=== PATIENT | male | born 1965 | race American Indian/Alaskan Native ===

== ENCOUNTER 2017-05-20 09:40 | Emergency (ER) | payer MEDICARE, MEDICAID ==
--- NOTE | 2017-05-20 10:27 | C.PDOC ---
Addendum entered and electronically signed by Luciana Mendoza APN 05/20/17 18:22: Addendum Addendum: 05/20/17 18:21 Patient lethargic Treated with additional Narcan 0.8 mg IM Addendum entered and electronically signed by Luciana Mendoza APN 05/20/17 15:07: Addendum Addendum: 05/20/17 15:06 Patient treated with narcan 0.4 mg IM for possible OD patiernt continues to be lethargic and treated with additional narcan 0.8 mg IM On re-evaluation more alert Original Note: History Of Present Illness <Luciana Mendoza - Last Filed: 05/20/17 18:21> <Kadi Loza - Last Filed: 05/20/17 22:04> 51 y/o male, with history of HTN and glaucoma, presents to the ER for detox from heroin and ETOH. Patient states that his last use was yesterday. Patient reports that he has never been in detox. (Luciana Mendoza) History Per: Patient History/Exam Limitations: no limitations <Luciana Mendoza - Last Filed: 05/20/17 18:21> <Kadi Loza - Last Filed: 05/20/17 22:04> Time Seen by Provider: 05/20/17 10:02 Chief Complaint (Nursing): Substance Abuse Past Medical History Reviewed: Historical Data, Nursing Documentation, Vital Signs - Medical History PMH: HTN Surgical History: No Surg Hx Family History: States: No Known Family Hx - Social History Hx Alcohol Use: Yes Hx Substance Use: Yes - Immunization History Hx Influenza Vaccination: Yes <Luciana Mendoza - Last Filed: 05/20/17 18:21> Vital Signs: Last Vital Signs Temp 99 F 05/20/17 19:17 Pulse 81 05/20/17 19:17 Resp 20 05/20/17 19:17 BP 149/84 05/20/17 19:17 Pulse Ox 99 05/20/17 19:17 Review Of Systems Except As Marked, All Systems Reviewed And Found Negative. <Luciana Mendoza - Last Filed: 05/20/17 18:21> Physical Exam - Physical Exam Appears: No Acute Distress Skin: Normal Color, Warm Head: Atraumatic, Normacephalic Eye(s): bilateral: Normal Inspection Nose: Normal Oral Mucosa: Moist Neck: Supple Chest: Symmetrical Cardiovascular: Rhythm Regular Respiratory: Normal Breath Sounds, No Accessory Muscle Use, No Rales, No Rhonchi , No Wheezing Neurological/Psych: Oriented x3, Normal Speech, Normal Motor, Normal Sensation <Luciana Mendoza - Last Filed: 05/20/17 18:21> ED Course And Treatment - Laboratory Results Result Diagrams: 05/20/17 10:39 05/20/17 10:39 Lab Interpretation: Normal O2 Sat by Pulse Oximetry: 98 (RA) Pulse Ox Interpretation: Normal Progress Note: Case discussed and patient evaluated by reinforcing metal worker who request admission to detox Reassessment Condition: Unchanged - Physician Consult Information Physician Contacted: Anabel Pfeiffer Outcome Of Conversation: admit <Luciana Mendoza - Last Filed: 05/20/17 18:21> - Laboratory Results Result Diagrams: 05/20/17 10:39 05/20/17 10:39 <Kadi Loza - Last Filed: 05/20/17 22:04> Medical Decision Making <Luciana Mendoza - Last Filed: 05/20/17 18:21> <Kadi Loza - Last Filed: 05/20/17 22:04> Medical Decision Making: Plan: --Labs --UA --UDS Updates: knockdown worker evaluated the patient. (Luciana Mendoza) Disposition Discussed With : Anabel Pfeiffer Doctor Will See Patient In The: Hospital - Disposition Disposition Time: 12:20 - POA Present On Arrival: None <Luciana Mendoza - Last Filed: 05/20/17 18:21> - Disposition Disposition Time: 22:04 <Kadi Loza - Last Filed: 05/20/17 22:04> - Disposition Disposition: HOME/ ROUTINE Condition: STABLE - Clinical Impression Clinical Impression: Drug abuse, Drug dependence - PA / EDUCATION SPECIALIST / Resident Statement MD/DO has reviewed & agrees with the documentation as recorded. - Scribe Statement The provider has reviewed the documentation as recorded by the Scribe <Luciana Mendoza - Last Filed: 05/20/17 18:21> <Kadi oLza - Last Filed: 05/20/17 22:04> - Hardyibe Statement Apurva Bartholomew Provider Attestation All medical record entries made by the Scribe were at my direction and personally dictated by me. I have reviewed the chart and agree that the record accurately reflects my personal performance of the history, physical exam, medical decision making, and the department course for this patient. I have also personally directed, reviewed, and agree with the discharge instructions and disposition. (Luciana Mendoza) Decision To Admit - Pt Status Changed To: Hospital Disposition Of: Inpatient - Admit Certification Admit to Inpatient:: After my assessment, the patient will require hospitalization for at least two midnights. This is because of the severity of symptoms shown, intensity of services needed, and/or the medical risk in this patient being treated as an outpatient. - InPatient: Physician Admission Certification: I certify that this patient requires 2 or more midnights of care for the following reason:: Opioid Dependence - . Bed Request Type: Detox Admitting Physician: Anabel Pfeiffer <Luciana Mendoza - Last Filed: 05/20/17 18:21> <Kadi Loza - Last Filed: 05/20/17 22:04> - . Patient Diagnosis: Drug abuse, Drug dependence Addendum <Luciana Mendoza - Last Filed: 05/20/17 18:21> <Kadi Loza - Last Filed: 05/20/17 22:04> Addendum: 05/20/17 22:02 Case discussed with Juanita from Crisis. Dr Pfeiffer is unwilling to accept patient on the floor due to the amount of Narcan required to keep the patient awake. He has been in the bathroom for the past several minutes and now c/o sweating and diarrhea. Vital signs remain stable and he does not show any signs of withdrawal at this time. he is now stating that he wants to leave. (Kadi Loza)
[2017-05-20 10:50] LABS: BASO # 0.1 K/uL (0.0-0.2); BASO % 0.8 % (0.0-2.0); EOS # 0.2 K/uL (0.0-0.7); EOS % 3.1 % (0.0-4.0); HEMOGLOBIN 12.6 g/dL (12.0-18.0); LYMPH % 39.4 % (20.0-40.0); MEAN CELL VOLUME 80.7 fL (80.0-94.0); MEAN CORPUSCULAR HEMOGLOBIN 26.8 pg (27.0-31.0); MEAN CORPUSCULAR HGB CONC 33.2 g/dL (33.0-37.0); MEAN PLATELET VOLUME 9.6 fL (7.2-11.7); MONO # 1.2 K/uL (0.0-0.8); MONO % 16.5 % (0.0-10.0); NEUT % 40.2 % (50.0-75.0); RBC 4.71 Mil/uL (4.40-5.90); RED CELL DISTRIBUTION WIDTH 14.9 % (11.5-14.5); WHITE BLOOD COUNT 7.5 K/uL (4.8-10.8)
[2017-05-20 10:58] LABS: ALB/GLOB RATIO 1.2 (1.0-2.1); ALBUMIN 4.1 g/dL (3.5-5.0); ALT/SGPT 48 U/L (21-72); AST/SGOT 34 U/L (17-59); BLOOD UREA NITROGEN 32 mg/dL (9-20); CALCIUM 9.2 mg/dl (8.6-10.4); GFR AFRICAN-AMERICAN 24; GFR NON-AFRICAN AMERICAN 20
[2017-05-20 11:01] LABS: BARBITURATES, UR NEGATIVE (NEGATIVE); PHENCYCLIDINE, UR NEGATIVE (NEGATIVE)
[2017-05-20 11:07] LABS: SQUAMOUS EPITHIAL < 1 /hpf (0-5); URINE BILIRUBIN NEGATIVE (NEGATIVE); URINE CLARITY Hazy (Clear); URINE COLOR Yellow (YELLOW); URINE GLUCOSE (UA) NORMAL (Normal); URINE LEUKOCYTE ESTERASE NEG Leu/uL (Negative); URINE NITRATE NEGATIVE (NEGATIVE); URINE PROTEIN 1+ mg/dL (NEGATIVE); URINE UROBILINOGEN NORMAL mg/dL (0.2-1.0)
[2017-05-20 11:08] LABS: URINE BLOOD NEGATIVE (NEGATIVE)
[2017-05-20 11:27] LABS: BENZODIAZEPINES, UR POSITIVE (NEGATIVE); OPIATES, UR POSITIVE (NEGATIVE)
[2017-05-20] MEDS ORDERED: Naloxone 0.4 mg/ml Inj (Adult) IM ONE ×4 (12:12→19:07)
[2017-05-20] MEDS ORDERED: Naloxone 0.4 mg/ml Inj (Adult) ONE ×6 (12:12→21:24)
--- NOTE | 2017-05-20 17:53 | PCM.BM ---
Treatment Plan Problems - Problems identified on initial assessmt potiential for opiate withdrawal Date Initiated: 05/20/17 Time Initiated: 17:52 Assessment reference: NA Status: Active potiential for autonomic instability related to alcohol withdrawal Date Initiated: 05/20/17 Time Initiated: 17:52 Assessment reference: NA Status: Active Treatment assets and liabiliti Patient Assests: ADL independent, physically healthy, negotiates basic needs, cognitively intact Patient Liabilities: substance abuse - Milieu Protocol Maintain good personal hygiene: daily Encourage regular showers, daily Remind patient to perform daily oral care, daily Assist patient to perform ADL's Maintain personal safety: every shift Educate patient to report safety concerns to staff, every shift Monitor environment for contraband/sharps Medication safety: Monitor for expected outcome, potential side effects: every shift, Assess barriers to learning: every shift, Assess readiness for medication education: every shift
[2017-05-20 19:18] VITALS: BP 149/84; PULSE 81; RESP 20; TEMP 99; O2SAT 99
[2017-05-20] MEDS ORDERED: Aluminum Hydroxide/Magnesium Hydroxide Susp (30 mL) PO PRN (21:30)
--- NOTE | 2017-05-20 22:41 | CP.PCM.PCO ---
Physician Communication Note - Physician Communication Note Physician Communication Note: Pt got 4 Narcans, thus copy writer asked for longer monitoring but he AMA'ed
== END 2017-05-20 22:30 | disposition left against medical advice (07) ==
LOC: C.ER 09:40 → UNDOADMIN 12:03 → C.7D 12:03 → C.9E 12:50 → C.7D 12:50 → C.9E 16:59 → UNDODISIN 22:30 → C.ER 22:30 → C.9E 22:58 → C.7D 22:58
DX: F19.20 Other psychoactive substance dependence, uncomplicated (principal); I10 Essential (primary) hypertension
CPT/HCPCS: 80053; 81001; 85025; 96372; 99285; G0480; J2310

== ENCOUNTER 2017-07-27 12:09 | Inpatient (IN) | payer MEDICARE, MEDICAID ==
--- NOTE | 2017-07-27 13:13 | C.PDOC ---
History Of Present Illness 52 y/o male presents to the ER for detox from heroin. Patient states that he uses snorts bags of heroin daily and snorts and smokes cocaine , half pack each day for the past 20 years. Of note, patient has a history of advanced glaucoma and he is non-complaint with his medications. Time Seen by Provider: 07/27/17 13:10 Chief Complaint (Nursing): Substance Abuse History Per: Patient History/Exam Limitations: no limitations Past Medical History Reviewed: Historical Data, Nursing Documentation, Vital Signs Vital Signs: Last Vital Signs Temp 97.6 F 07/27/17 20:44 Pulse 72 07/27/17 20:44 Resp 18 07/27/17 20:44 BP 147/99 H 07/27/17 21:54 Pulse Ox 98 07/28/17 00:24 - Medical History PMH: HTN Denies: Diabetes, Hepatitis, HIV, Chronic Kidney Disease, Seizures, Sexually Transmitted Disease Surgical History: No Surg Hx Family History: States: No Known Family Hx - Social History Hx Alcohol Use: Yes Hx Substance Use: Yes (Heroin-sniff, cocaine) - Immunization History Hx Influenza Vaccination: Yes Review Of Systems Except As Marked, All Systems Reviewed And Found Negative. Constitutional: Negative for: Fever, Chills Eyes: Negative for: Pain, Vision Change ENT: Negative for: Ear Pain, Ear Discharge, Nose Congestion Cardiovascular: Negative for: Chest Pain, Palpitations, Orthopnea Respiratory: Negative for: Cough, Shortness of Breath, Hemoptysis, SOB with Excertion, Pleuritic Pain Gastrointestinal: Negative for: Nausea, Vomiting, Abdominal Pain, Constipation Genitourinary: Negative for: Dysuria, Hematuria Musculoskeletal: Negative for: Neck Pain, Back Pain Skin: Negative for: Rash Neurological: Negative for: Weakness, Numbness Psych: Negative for: Anxiety Physical Exam - Physical Exam Appears: No Acute Distress Skin: Normal Color, Warm, Dry Head: Atraumatic, Normacephalic Eye(s): bilateral: Normal Inspection Nose: Normal Oral Mucosa: Moist Neck: Supple Chest: Symmetrical Cardiovascular: Rhythm Regular ( ) Respiratory: Normal Breath Sounds, No Rales, No Rhonchi, No Wheezing Gastrointestinal/Abdominal: Normal Exam, Soft, No Tenderness Neurological/Psych: Oriented x3, Normal Speech ED Course And Treatment - Laboratory Results Result Diagrams: 07/27/17 15:55 07/27/17 15:55 O2 Sat by Pulse Oximetry: 98 (RA) Pulse Ox Interpretation: Normal Progress Note: Labs and UA ordered. UA is positive for opiates. Crisis evaluated patient. Patient will be admitted. Disposition Counseled Patient/Family Regarding: Diagnosis - Disposition Disposition: HOSPITALIZED Disposition Time: 00:25 Condition: GOOD - Clinical Impression Clinical Impression: Drug dependence, Drug abuse - Scribe Statement The provider has reviewed the documentation as recorded by the Noel Bartholomew Provider Attestation: All medical record entries made by the Noel were at my direction and personally dictated by me. I have reviewed the chart and agree that the record accurately reflects my personal performance of the history, physical exam, medical decision making, and the department course for this patient. I have also personally directed, reviewed, and agree with the discharge instructions and disposition.
[2017-07-27 13:33] LABS: SQUAMOUS EPITHIAL 2 /hpf (0-5); URINE BACTERIA RARE (<OCC); URINE BILIRUBIN NEGATIVE (NEGATIVE); URINE BLOOD NEGATIVE (NEGATIVE); URINE CLARITY Hazy (Clear); URINE GLUCOSE (UA) NORMAL (Normal); URINE LEUKOCYTE ESTERASE NEG Leu/uL (Negative); URINE PROTEIN 2+ mg/dL (NEGATIVE)
[2017-07-27 13:42] LABS: BARBITURATES, UR NEGATIVE (NEGATIVE); BENZODIAZEPINES, UR NEGATIVE (NEGATIVE); PHENCYCLIDINE, UR NEGATIVE (NEGATIVE)
[2017-07-27 13:43] LABS: URINE COLOR YELLOW (YELLOW)
[2017-07-27 14:12] LABS: OPIATES, UR POSITIVE (NEGATIVE)
[2017-07-27 16:02] LABS: BASO % 0.6 % (0.0-2.0); EOS # 0.1 K/uL (0.0-0.7); EOS % 1.3 % (0.0-4.0); LYMPH # 2.3 K/uL (1.0-4.3); LYMPH % 37.4 % (20.0-40.0); MEAN CELL VOLUME 80.5 fL (80.0-94.0); MEAN CORPUSCULAR HGB CONC 33.6 g/dL (33.0-37.0); MEAN PLATELET VOLUME 9.2 fL (7.2-11.7); MONO # 0.6 K/uL (0.0-0.8); MONO % 10.1 % (0.0-10.0); NEUT # 3.1 K/uL (1.8-7.0); NEUT % 50.6 % (50.0-75.0); NRBC % 0.1 % (0.0-2.0); RBC 4.81 Mil/uL (4.40-5.90); RED CELL DISTRIBUTION WIDTH 15.1 % (11.5-14.5); WHITE BLOOD COUNT 6.2 K/uL (4.8-10.8)
[2017-07-27 16:29] LABS: ALBUMIN 3.6 g/dL (3.5-5.0); ALT/SGPT 29 U/L (21-72); AST/SGOT 51 U/L (17-59); CALCIUM 8.5 mg/dl (8.6-10.4); GFR AFRICAN-AMERICAN > 60; GFR NON-AFRICAN AMERICAN > 60
[2017-07-27 16:48] LABS: BLOOD UREA NITROGEN 18 mg/dL (9-20)
[2017-07-27] MEDS ORDERED: Buprenorphine Hydrochloride 2 mg SL ONE (18:01)
[2017-07-27] MEDS ORDERED: Aluminum Hydroxide/Magnesium Hydroxide Susp (30 mL) PO PRN (18:03)
--- NOTE | 2017-07-27 18:26 | PCM.BM ---
<Aminta Cross - Last Filed: 07/27/17 18:23> Treatment Plan Problems - Problems identified on initial assessmt Potential for alcohol withdrawal Date Initiated: 07/27/17 Time Initiated: 18:24 Assessment reference: NA Status: Active Priority: 1 Potential for opiate withdrawal Date Initiated: 07/27/17 Time Initiated: 18:25 Assessment reference: NA Status: Active Priority: 2 Treatment assets and liabiliti Patient Assests: cooperative, ADL independent, negotiates basic needs, cognitively intact Patient Liabilities: substance abuse, medical problems (HTN,legally blind) - Milieu Protocol Maintain good personal hygiene: daily Encourage regular showers, daily Remind patient to perform daily oral care, daily Assist patient to perform ADL's Conduct patient checks and document Observation sheet: Q15 minutes Maintain personal safety: every shift Educate patient to report safety concerns to staff, every shift Monitor environment for contraband/sharps Medication safety: Monitor for expected outcome, potential side effects: every shift, Assess barriers to learning: every shift, Assess readiness for medication education: every shift <Anirudh Ornelas - Last Filed: 07/29/17 16:32> - Diagnosis (1) Opioid use disorder, severe, dependence Status: Acute Interventions: 07/29/17 16:31 Assess 7x/week regarding severity of withdrawal * Educate regarding risks, benefits, side effects and alternatives of medications * Use Motivational Interviewing for abstinence * Use CBT for relapse prevention * Medication management for withdrawal symptoms * Encourage medication assisted treatment (2) Alcohol use disorder, severe, dependence Status: Acute Interventions: 07/29/17 16:32 Assess 7x/week regarding severity of withdrawal * Educate regarding risks, benefits, side effects and alternatives of medications * Use Motivational Interviewing for abstinence * Use CBT for relapse prevention * Medication management for withdrawal symptoms * Encourage medication assisted treatment (3) Cocaine use disorder Status: Acute Interventions: 07/29/17 16:32 Assess 7x/week regarding severity of withdrawal * Educate regarding risks, benefits, side effects and alternatives of medications * Use Motivational Interviewing for abstinence * Use CBT for relapse prevention * Medication management for withdrawal symptoms * Encourage medication assisted treatment
[2017-07-27] MEDS: Buprenorphine Hydrochloride 2 mg SL SCH ×3 (19:40→21:51)
[2017-07-28] MEDS: Buprenorphine Hydrochloride 2 mg SL SCH (09:20)
[2017-07-28] MEDS: Multiple Vitamins Tab PO SCH (12:35)
[2017-07-28] MEDS ORDERED: Buprenorphine Hydrochloride 2 mg SL SCH (18:02)
--- NOTE | 2017-07-28 20:33 | PCM.PSYCH ---
Initial Psychiatric Evaluation - Initial Psychiatric Evaluation Type of Admission: Voluntary Legal Status: Capacity Chief Complaint (in patient's own words): I'm here for the treatment of heroine and cocaine. History of Present Illness and Precipitating Events: Patient is a 52 years old, single, unemployed since 2013, on disability, -[place] male with no previous psychiatric history was admitted for the treatment of withdrawing from heroin and cocaine. He also uses alcohol. Heroin: Started at age 45 years, increased gradually, currently he was using 15 bags of heroin daily, sniffing. His last use was 2 days ago, 12 packs. No previous detox or rehabs. Cocaine: Started using cocaine 2 years ago, unspecified amount, sniffing, last used one week ago. Alcohol: He started drinking alcohol at fort 6 years of age, was drinking daily. He was drinking 3 cans of 24 ounces daily. Last used 2 days ago. He was also smoking half pack of cigarettes daily and is requesting for nicotine patch. Patient was born in [place] and has GED. 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 Currently on disability. He is single and has 1: 30 years old child. He is homeless for last 1 year. His height is 5 feet 11 inches and weight is 172 pounds. Current Medications: Active Medications Generic Name Dose Route Start Last Admin Trade Name Freq PRN Reason Stop Dose Admin Al Hydrox/Mg Hydrox/Simethicone 30 ml 07/27/17 18:03 Maalox 30 Ml PO TID PRN Indigestion / Heartburn Buprenorphine HCl 6 mg 07/28/17 10:00 07/28/17 09:20 Subutex SL 07/31/17 09:59 6 mg DAILY ARIADNE Administration Taper Chlordiazepoxide 25 mg 07/28/17 11:30 07/28/17 17:27 Librium PO 25 mg Q4H PRN Administration Alcohol Withdrawal Clonidine HCl 0.1 mg 07/27/17 18:18 07/28/17 17:27 Catapres PO 0.1 mg Q6H PRN Administration HYPERTENSION Dicyclomine HCl 10 mg 07/27/17 18:04 07/27/17 20:45 Bentyl PO 10 mg Q6 PRN Administration Abdominal cramps Folic Acid 1 mg 07/28/17 11:30 07/28/17 12:35 Folic Acid PO Not Given DAILY ARIADNE Gabapentin 300 mg 07/27/17 18:15 07/28/17 17:27 Neurontin PO 300 mg BID ARIADNE Administration Ibuprofen 400 mg 07/27/17 18:05 07/28/17 09:11 Motrin Tab PO 400 mg Q6 PRN Administration Pain, moderate (4-7) Loperamide HCl 2 mg 07/27/17 18:03 Imodium PO Q8 PRN Diarrhea Multivitamins 1 tab 07/28/17 11:30 07/28/17 12:35 Hexavitamin PO Not Given DAILY ARIADNE Nicotine 1 patch 07/28/17 11:45 07/28/17 12:40 Nicoderm Cq TD 1 patch DAILY ARIADNE Administration Ondansetron HCl 4 mg 07/27/17 18:03 Zofran Tab PO Q8 PRN Nausea/Vomiting Thiamine HCl 100 mg 07/28/17 11:30 07/28/17 12:35 Vitamin B1 Tab PO Not Given DAILY ARIADNE Trazodone HCl 50 mg 07/27/17 22:00 07/27/17 22:18 Desyrel PO Not Given HS ARIADNE Past Psychiatric History - Past Psychiatric History Previous Treatment History: None History of Abuse: None reported History of ETOH/Drug Use: See HPI History of Family Illness: None reported Pertinent Medical Hx (Current Medical&Sleep Prob, Allergies): Allergies Allergy/AdvReac Type Severity Reaction Status Date / Time No Known Allergies Allergy Verified 07/27/17 12:42 No Known Home Med 05/20/17 Hypertension Bilateral glaucoma Review of Systems - Psychiatric Psychiatric: As Per HPI Mental Status Examination - Personal Presentation Personal Presentation: Looks stated age - Affect Affect: Depressed - Motor Activity Motor Activity: Calm - Reliability in Providing Information Reliability in Providing Information: Fair - Speech Speech: Organized - Mood Mood: Depressed - Formal Thought Process Formal Thought Process: No Impairment - Hallucinations/Delusions Hallucinations: Other (None reported) Delusions: Other - Obsessions/Compulsions Obsessions: None Compulsions: None - Cognitive Functions Orientation: Person, Place, Situation, Time Sensorium: Alert Attention/Concentration: Attentive Abstract Thinking: [place] Estimate of Intelligence: Average Judgement: Imparied, as evidence by: Lack of insight into illness Memory: Recent intact, as evidence by: 3/3 object recall, Remote intact, as evidenced by: Ability to recall historical events - Risk Risk: Withdrawal, Diminished functioning - Strength & Assets Inventory Strength & Assets Inventory: Cooperative - Limitations Limitations: Other (Homeless) DSM 5 DX - DSM 5 DSM 5 Diagnosis: Opiate use disorder severe. Alcohol use disorder severe. Cocaine use disorder moderate - Recommended/Plan of Treatment Treatment Recommendations and Plan of Treatment: Patient education. Supportive therapy. CBT for relapse prevention. [place] for abstinence. We will start buprenorphine taper for opiate withdrawal symptoms. Will start Librium detox protocol for alcohol withdrawal symptoms. Projected ELOS: 4-5 days Discharge Plan and Discharge Criteria: Patient wants to go to rehabilitation after discharge from the hospital. - Smoking Cessation Smoking Cessation Initiated: Yes
[2017-07-29] MEDS: Multiple Vitamins Tab PO SCH (09:26)
[2017-07-29] MEDS: Buprenorphine Hydrochloride 2 mg SL SCH (09:26)
--- NOTE | 2017-07-29 16:27 | PCM.PYCHPN ---
Psychiatric Progress Note - Psychiatric Progress Note Patient seen today, length of contact: 15 minutes Patient Chief Complaint: I'm feeling better. Problems Identified/Issues Discussed: Patient seen, chart reviewed, case discussed with the staff. Issues related to illness and treatment were discussed with the patient. Reported compliant with treatment with no adverse affects. Tolerating treatment very well. Patient reported feeling better. Aftercare discussed with the patient. At the time of evaluation, patient was awake alert oriented 3, had no delusions , no auditory visual hallucinations, no suicidal ideations or homicidal ideations. Medical Problems: Hypertension Bilateral glaucoma Diagnostic Results: Reviewed DSM 5 Symptoms Update: Improving with treatment Medication Change: No Medical Record Reviewed: Yes Mental Status Examination - Cognitive Function Orientation: Person, Place, Situation, Time Memory: Intact Attention: WNL Concentration: WNL Association: WNL Fund of Knowledge: [facility] Decription of patient's judgement and insights: Fair - Mood Mood: Depressed (Much less than before) - Affect Affect: Depressed - Speech Speech: Appropriate - Formal Thought Process Formal Thought Process: No Impairment Psychotic Thoughts and Behaviors: None - Suicidal Ideation Suicidal Ideation: No - Homicidal Ideation Homicidal Ideation: No Goal/Treatment Plan - Goal/Treatment Plan Need for Continued Stay: Remain at risks for inpatient hospitalization, Discharge may exacerbated symptoms, Severe functional impairment Progress Toward Problem(s) and Goals/Treatment Plan: Patient education. Supportive therapy. CBT for relapse prevention. [place] for abstinence. Continue treatment as before. Estimated Date of D/C: 07/31/17 - Smoking Cessation Smoking Cessation Initiated: Yes
[2017-07-30] MEDS: Multiple Vitamins Tab PO SCH (09:20)
[2017-07-30] MEDS: Buprenorphine Hydrochloride 2 mg SL SCH (09:21)
[2017-07-30 12:21] VITALS: RESP 18
[2017-07-31 06:17] VITALS: TEMP 98.4; O2SAT 98
--- NOTE | 2017-07-31 08:43 | PCM.PYCHDC ---
Mental Status Examination - Mental Status Examination Orientation: Person, Place, Situation, Time Memory: Intact Mood: Neutral Affect: Broad Speech: Appropriate Attention: WNL Concentration: WNL Association: WNL Fund of Knowledge: WNL Formal Thought Process: No Impairment Suicidal Ideation: No Current Homicidal Ideation?: No Discharge Summary - Discharge Note Reason for Hospitalization: Heroin and cocaine detox Consultations:: List each consultation separately and include: 1. Reason for request. 2. Findings. 3. Follow-up Summary of Hospital Course include:: 1. Description of specific treatment plan utilized for patients during their course of treatmen. 2. Summarize the time- course for resolution of acute symptoms and/or regressed behaviors. 3. Describe issues identified and worked on during hospitalization. 4. Describe medication utilized. 5. Describe medical problems identified and treated. 6. Reassessment of suicide risk Summary of Hospital Course: The pt is seen, chart reviewed, case discussed. On admission: Patient is a 52 years old, single, unemployed since 2013, on disability, -[place] male with no previous psychiatric history was admitted for the treatment of withdrawing from heroin and cocaine. He also uses alcohol. Heroin: Started at age 45 years, increased gradually, currently he was using 15 bags of heroin daily, sniffing. His last use was 2 days ago, 12 packs. No previous detox or rehabs. Cocaine: Started using cocaine 2 years ago, unspecified amount, sniffing, last used one week ago. Alcohol: He started drinking alcohol at fort 6 years of age, was drinking daily. He was drinking 3 cans of 24 ounces daily. Last used 2 days ago. He was also smoking half pack of cigarettes daily and is requesting for nicotine patch. Medical hx: HTN, glaucoma - legally blind Hospital course: The pt was admitted and started on treatment with psychotherapy, support, psychoeducation and medications. MD and CBT used. The pt attended groups and activities, as well as milieu therapy. All the risks and benefits of medications are discussed and the patient understood and agreed. The pt improved with the treatments provided. After care discussed with the patient. He will attend [facility] - Final Diagnosis (DSM 5) Condition upon Discharge: IMPROVED DSM 5: Opioid use d/o - severe Cocaine use d/o- severe Disposition: REHAB FACILITY/REHAB UNIT Follow-up Treatment Plan: Continue below medications after discharge. However, he couldn't afford meds but HCTZ He will follow up with [facility] clinic and apply to reinstate his Medicaid Follow after care plan as discussed. Use relapse prevention skills Return to ER or call 911 if suicidal, homicidal or symptoms relapse. Stay away from stress, alcohol and drugs. See primary doctor regularly and get labs. Prescriptions/Medication Reconciliation: Gabapentin [Neurontin] 300 mg PO BID #60 cap hydroCHLOROthiazide [Microzide] 12.5 mg PO DAILY #30 cap traZODone [Desyrel] 50 mg PO HS #30 tab
[2017-07-31] MEDS ORDERED: Buprenorphine Hydrochloride 2 mg SL ONE (08:45)
[2017-07-31] MEDS: Multiple Vitamins Tab PO SCH (09:58)
[2017-07-31 11:08] VITALS: BP 143/94; PULSE 78
== END 2017-07-31 11:08 | DRG 897 ==
LOC: C.ER 12:09 → C.7D 15:31
DX: F11.20 Opioid dependence, uncomplicated (principal); F14.20 Cocaine dependence, uncomplicated; F17.210 Nicotine dependence, cigarettes, uncomplicated; I10 Essential (primary) hypertension; H54.8 Legal blindness, as defined in USA; H40.9 Unspecified glaucoma; Z91.14 Patient's other noncompliance with medication regimen; Z59.0 Homelessness; F10.20 Alcohol dependence, uncomplicated